=== PATIENT | female | born 1955 | race Caucasian/White ===

== ENCOUNTER 2016-08-19 18:13 | Inpatient (IN) | payer SELFPAY ==
[~2016-08-19] VITALS: Ht 157.5 cm; Wt 72.2 kg
[~2016-08-19 18:13] MED LIST: ADVAI500I INH; AEROI INH; ALBU0.086 INH; ALBU17I INH; DOXY100T OR; DUONSOL2 NEB; VENTAER INH
[2016-08-19] MEDS ORDERED: ONDANSETRON HCL 4 MG/2 ML VIAL IV PUSH ONE (18:45)
[2016-08-19] MEDS ORDERED: MORPHINE SULFATE 4 MG/ML INJ IV PUSH ONE (18:45)
[2016-08-19] MEDS ORDERED: SODIUM CHLORIDE 0.9% FLUSH 5 ML FLUSH IVF PRN (18:45)
--- NOTE | 2016-08-19 18:55 | PD ---
HPI Chief Complaint: fall/right shoulder pain Time Seen by Provider: 18:52 Travel History International Travel<30 days: No Contact w/Intl Traveler<30days: No Traveled to known affect area: No History of Present Illness HPI 61-year-old female who fell at home was brought to the emergency department via EMS with right shoulder pain. Patient states she slipped in her kitchen and fell onto the floor. Patient has pain in the right upper extremity and is unable to move the shoulder. She states normal distal sensation and can make a fist. Patient is splinted in a sling. She denies hitting her head or loss of consciousness. She denies headache or neck pain. She denies injury to any other part of the body. Patient has a history of COPD but she does not use anything for it currently. Percocet makes her violently ill. She states she's had morphine in the past with Zofran without difficulty. Patient's last meal was at noon. PFSH Past Medical History Asthma: Yes Blood Disorders: No Cancer: No Cardiovascular Problems: No Chemotherapy: No COPD: Yes Endocrine: No Genitourinary: No Immune Disorder: No Neurologic: No Psychiatric: No Reproductive: No Respiratory: Yes Radiation Therapy: No Menopausal: Yes Past Surgical History Abdominal Surgery: No Cardiac Surgery: No Ear Surgery: No Endocrine Surgery: No Eye Surgery: No Genitourinary Surgery: No Gynecologic Surgery: No Neurologic Surgery: No Oral Surgery: Yes (TONSILS) Thoracic Surgery: No Tonsillectomy: Yes Other Surgery: Yes Social History Alcohol Use: Yes (2-3 BEERS A DAY) Tobacco Use: Yes (1/2 PPD) Substance Use: No Allergies-Medications (Allergen,Severity, Reaction): Coded Allergies: Percocet (Verified Allergy, Severe, headache, 08/19/16) Uncoded Allergies: [facility] (Allergy, Unknown, 04/21/09) Reported Meds & Prescriptions Reported Meds & Active Scripts Active Doxycycline Hyclate 100 Mg Tab 100 Mg OR BID Advair Diskus 500/50 (Salmeterol Xinafoate/Fluticasone) 500 Mcg/50 Mcg Inhp 14 Inhalation INH DAILY Proventil Ud 0.083% (2.5 Mg/3 Ml) (Albuterol Sulfate) 2.5 Mg/3 Ml Inha 2.5 Mg INH Q4 30 Days Aerochamber (Device) Device 0 INH DIRECTED Ventolin Hfa (Albuterol Sulfate) 18 Gm Aero 2 Puff INH Q4 * SHAKE WELL BEFORE USE * Resp: Albuterol 2.5 Mg/Ipratropium 0.5 Mg (Albuterol/Ipratropium) 1 Amp Nebu 1 Amp NEB QID Proventil Ud 0.083% (2.5 Mg/3 Ml) (Albuterol Sulfate) 2.5 Mg/3 Ml Inha 2.5 Mg INH QIDPRN Reported Proventil Mdi (Albuterol Sulfate) 17 Gm Aero 2 Puff INH Q3-4HPRN Physical Exam Narrative GENERAL: Patient appears in moderate distress. SKIN: Warm and dry. Normal color. Normal turgor. No abrasions or open wounds. HEAD: Atraumatic. Normocephalic. Tender. EYES: Pupils equal and round. No scleral icterus. No injection or drainage. ENT: No nasal bleeding or discharge. Mucous membranes pink and moist. No dental injury. Pharynx is clear. Airway is patent. NECK: Trachea midline. No bony tenderness. No step-off. Range of motion is full. CARDIOVASCULAR: Regular rate and rhythm. RESPIRATORY: No accessory muscle use. Clear to auscultation. Breath sounds equal bilaterally. GASTROINTESTINAL: Abdomen soft, non-tender, nondistended. Hepatic and splenic margins not palpable. MUSCULOSKELETAL: Extremities without clubbing, cyanosis, or edema. No obvious deformities. Right shoulder has severe tenderness with palpation or any movement. Patient is guarding the right upper arm. No other musculoskeletal findings are noted. NEUROLOGICAL: Awake and alert. No obvious cranial nerve deficits. Motor grossly within normal limits. Five out of 5 muscle strength in the arms and legs. Normal speech. PSYCHIATRIC: Appropriate mood and affect; insight and judgment normal. Data Data Last Documented VS Vital Signs Date Time Temp Pulse Resp B/P Pulse Ox O2 Delivery O2 Flow Rate FiO2 08/19/16 19:10 98.1 76 16 142/89 97 Orders Ondansetron Inj (Zofran Inj) (08/19/16 18:45) Morphine Inj (Morphine Inj) (08/19/16 18:45) Shoulder, Limited(2vws) (08/19/16 18:44) Ice/Cold Pack (08/19/16 18:44) Complete Blood Count With Diff (08/19/16 18:44) Comprehensive Metabolic Panel (08/19/16 18:44) Prothrombin Time / Inr (Pt) (08/19/16 18:44) Act Partial Throm Time (Ptt) (08/19/16 18:44) Iv Access Insert/Monitor (08/19/16 18:44) NPO (08/19/16 18:44) Sodium Chloride 0.9% Flush (Ns Flush) (08/19/16 18:45) Electrocardiogram (08/19/16 18:44) Chest, Single Ap (08/19/16 18:44) Ct Shoulder W Iv Contrast (08/19/16 ) Labs Laboratory Tests Test 08/19/16 19:00 White Blood Count 13.8 TH/MM3 Red Blood Count 4.32 MIL/MM3 Hemoglobin 12.7 GM/DL Hematocrit 37.7 % Mean Corpuscular Volume 87.3 FL Mean Corpuscular Hemoglobin 29.3 PG Mean Corpuscular Hemoglobin 33.5 % Concent Red Cell Distribution Width 13.3 % Platelet Count 277 TH/MM3 Mean Platelet Volume 8.3 FL Neutrophils (%) (Auto) 74.4 % Lymphocytes (%) (Auto) 19.9 % Monocytes (%) (Auto) 4.2 % Eosinophils (%) (Auto) 1.1 % Basophils (%) (Auto) 0.4 % Neutrophils # (Auto) 10.3 TH/MM3 Lymphocytes # (Auto) 2.7 TH/MM3 Monocytes # (Auto) 0.6 TH/MM3 Eosinophils # (Auto) 0.2 TH/MM3 Basophils # (Auto) 0.1 TH/MM3 CBC Comment DIFF FINAL Differential Comment Prothrombin Time 10.7 SEC Prothromb Time International 1.0 RATIO Ratio Activated Partial 22.9 SEC Thromboplast Time Sodium Level 140 MEQ/L Potassium Level 3.7 MEQ/L Chloride Level 106 MEQ/L Carbon Dioxide Level 26.8 MEQ/L Anion Gap 7 MEQ/L Blood Urea Nitrogen 16 MG/DL Creatinine 0.90 MG/DL Estimat Glomerular Filtration 64 ML/MIN Rate Random Glucose 111 MG/DL Calcium Level 8.5 MG/DL Total Bilirubin 0.2 MG/DL Aspartate Amino Transf 9 U/L (AST/SGOT) Alanine Aminotransferase 25 U/L (ALT/SGPT) Alkaline Phosphatase 74 U/L Total Protein 6.7 GM/DL Albumin 3.6 GM/DL MDM Medical Decision Making Medical Screen Exam Complete: Yes Emergency Medical Condition: Yes Differential Diagnosis Fall. Right humerus fracture. Right shoulder fracture. Narrative Course Patient is medically stable at time of exam. X-ray of the right shoulder is obtained. The access is obtained patient is given 4 mg Zofran IV as well as 4 mg morphine IV. Patient is kept nothing by mouth. Chest x-ray is obtained as well as EKG. Right shoulder x-ray shows comminuted fracture of the proximal humerus with humeral neck fracture with angulation. 1944 hrs. call was placed to Dr. Jimenez the orthopedic on-call. 1949 hrs. call was returned by Dr. Jimenez and the patient was discussed. He requested a CT scan of the right shoulder and admission by the hospitalist for surgery in the morning. CT of the right shoulder with IV contrast is requested. 1954 hrs. call was placed to the hospitalist for admission. Patient is to be nothing by mouth after midnight. 2009 hrs. patient was discussed with Dr. Acevedo, who will admit the patient. Diagnosis Primary Impression: Shoulder fracture, right Qualified Code: S42.91XA - Shoulder fracture, right, closed, initial encounter Admitting Information Admitting Physician Requests: Admit Condition: Stable Pantera Locke Aug 19, 2016 18:55
[2016-08-19 19:10] VITALS: BP 142/89; PULSE 76; RESP 16; TEMP 98.1; O2SAT 97
[2016-08-19 19:18] LABS: AUTOMATED NEUTROPHIL # 10.3 TH/MM3 (1.8-7.7); BASOPHIL # 0.1 TH/MM3 (0-0.2); BASOPHIL % 0.4 % (0.0-2.0); EOSINOPHIL # 0.2 TH/MM3 (0-0.4); EOSINOPHIL % 1.1 % (0.0-4.0); HEMATOCRIT 37.7 % (35.0-46.0); HEMO FLAGS DIFF FINAL; LYMPH % 19.9 % (9.0-44.0); LYMPHOCYTE # 2.7 TH/MM3 (1.0-4.8); MEAN CELL VOLUME 87.3 FL (80.0-100.0); MEAN CORPUSCULAR HEMOGLOBIN 29.3 PG (27.0-34.0); MEAN CORPUSCULAR HGB CONC 33.5 % (32.0-36.0); MONO % 4.2 % (0.0-8.0); NEUT % 74.4 % (16.0-70.0); PLATELET COUNT 277 TH/MM3 (150-450); RED BLOOD COUNT 4.32 MIL/MM3 (4.00-5.30); RED CELL DISTRIBUTION WIDTH 13.3 % (11.6-17.2); WHITE BLOOD COUNT 13.8 TH/MM3 (4.0-11.0)
[2016-08-19 19:37] LABS: APTT (PATIENT) 22.9 SEC (24.3-30.1); PROTHROMBIN TIME - PATIENT 10.7 SEC (9.8-11.6)
--- NOTE | 2016-08-19 19:40 | RADRPT ---
EXAM DATE/TIME: 08/19/2016 19:13 [facility] COMPARISON: No previous studies available for comparison. INDICATIONS : Right shoulder pain due to fall. MEDICAL HISTORY : None. SURGICAL HISTORY : None. ENCOUNTER: Initial ACUITY: 1 day PAIN SCORE: 8/10 LOCATION: Right Shoulder. FINDINGS: There is a comminuted greater tuberosity and anatomic neck fracture of the right humerus. The greater tuberosity fracture fragments have a few millimeters of superior displacement. The humeral head is d isplaced and angulated posteriorly with respect to the neck. CONCLUSION: Comminuted and displaced greater tuberosity and anatomic neck fracture of the right humerus. Melchor Cabrera MD on August 19, 2016 at 19:38 Board Certified Radiologist. This report was verified electronically.
--- NOTE | 2016-08-19 19:41 | RADRPT ---
EXAM DATE/TIME: 08/19/2016 19:18 [facility] COMPARISON: No previous studies available for comparison. INDICATIONS : Right chest pain due to fall. MEDICAL HISTORY : None. SURGICAL HISTORY : None. ENCOUNTER: Initial ACUITY: 1 day PAIN SCORE: 8/10 LOCATION: Bilateral chest FINDINGS: A single view of the chest demonstrates the lungs to be symmetrically aerated without evidence of mas s, infiltrate or effusion. The cardiomediastinal contours are unremarkable. Osseous structures are intact. CONCLUSION: No evidence of acute cardiopulmonary disease. Melchor Cabrera MD on August 19, 2016 at 19:39 Board Certified Radiologist. This report was verified electronically.
[2016-08-19 19:48] LABS: ALT (GPT) 25 U/L (10-53); ANION GAP 7 MEQ/L (5-15); AST (GOT) 9 U/L (15-37); BICARBONATE 26.8 MEQ/L (21.0-32.0); BLOOD UREA NITROGEN 16 MG/DL (7-18); CHLORIDE 106 MEQ/L (98-107); GLOMERULAR FILTRATION RATE 64 ML/MIN (>89); POTASSIUM 3.7 MEQ/L (3.5-5.1); SODIUM (NA) 140 MEQ/L (136-145)
[2016-08-19 19:50] LABS: ALKALINE PHOSPHATASE 74 U/L (45-117); TOTAL BILIRUBIN ADULT 0.2 MG/DL (0.2-1.0)
[2016-08-19] MEDS ORDERED: BISACODYL 10 MG SUPP PR PRN (20:15)
[2016-08-19] MEDS ORDERED: RESP: ALBUTEROL 2.5 MG/IPRATROPIUM 0.5 MG NEB (PRN) NEB (20:15)
[2016-08-19] MEDS ORDERED: SODIUM CHLORIDE 0.9% FLUSH 5 ML FLUSH FLUSH PRN (20:15)
[2016-08-19] MEDS ORDERED: MORPHINE SULFATE 4 MG/ML INJ IV PRN (20:15)
--- NOTE | 2016-08-19 20:35 | HHI.HP ---
[facility] Primary [facility]ician No Primary Care Physician Admission Diagnosis Right humerus fracture after fall Diagnoses: (1) Fall Diagnosis: Principal (2) Shoulder fracture, right Diagnosis: Principal (3) Leukocytosis Diagnosis: Principal (4) COPD (chronic obstructive pulmonary disease) Diagnosis: Principal (5) Tobacco abuse Diagnosis: Principal Travel History International Travel<30 Days: No Contact w/Intl Traveler <30 Da: No Traveled to Known Affected Are: No History of Present Illness This is a 61-year-old female with a PMH of COPD and Tobacco Abuse was brought to the ER by EMS secondary to complaints of right shoulder pain after fall. Per patient, she was in her kitchen when she had sudden slip and fall, fell onto her right arm and noted immediate pain. No LOC or head trauma. On arrival , BP 142/89, HR 76, O2 sat 97% on RA, Afebrile. WBC 13.8. Chemistry unremarkable except for GFR 64. Shoulder X-ray with comminuted and displaced greater tuberosity and anatomic neck fracture of the right humerus. CXR with no acute findings. Dr. Jimenez consulted by ER physician, plan is for surgical intervention in a.m. Review of Systems Except as stated in HPI: all other systems reviewed are Neg ROS: 14 point review of systems otherwise negative. Past Family Social History Past Medical History PMH: COPD and Tobacco Abuse Past Surgical History PAST SURGICAL HISTORY: Tonsillectomy Allergies: Coded Allergies: Percocet (Verified Allergy, Severe, headache, 08/19/16) Uncoded Allergies: [facility] (Allergy, Unknown, 04/21/09) Family History PAST FAMILY HISTORY: Reviewed. No h/o DM or CAD Social History PAST SOCIAL HISTORY: Drinks 2 beers per day. Smokes 1/2ppd. Negative for drugs. Physical Exam Vital Signs Vital Signs Date Time Temp Pulse Resp B/P Pulse Ox O2 Delivery O2 Flow Rate FiO2 08/19/16 19:10 98.1 76 16 142/89 97 Physical Exam PE: GENERAL: Middle-aged female in no acute distress. HEENT: PERRLA, EOMI. No scleral icterus or conjunctival pallor. No lid lag or facial droop. CARDIOVASCULAR: Regular rate and rhythm. No obvious murmurs to auscultation. No chest tenderness to palpation. RESPIRATORY: No obvious rhonchi or wheezing. Clear to auscultation. Breath sounds equal bilaterally. GASTROINTESTINAL: Abdomen soft, non-tender, nondistended. BS normal. MUSCULOSKELETAL: Extremities without clubbing, cyanosis, or edema. No obvious deformities. RUE splint NEUROLOGICAL: Awake, alert and oriented x4. No focal neurologic deficits. Moving both upper and lower extremities spontaneously. Laboratory Laboratory Tests Test 08/19/16 19:00 White Blood Count 13.8 Red Blood Count 4.32 Hemoglobin 12.7 Hematocrit 37.7 Mean Corpuscular Volume 87.3 Mean Corpuscular Hemoglobin 29.3 Mean Corpuscular Hemoglobin 33.5 Concent Red Cell Distribution Width 13.3 Platelet Count 277 Mean Platelet Volume 8.3 Neutrophils (%) (Auto) 74.4 Lymphocytes (%) (Auto) 19.9 Monocytes (%) (Auto) 4.2 Eosinophils (%) (Auto) 1.1 Basophils (%) (Auto) 0.4 Neutrophils # (Auto) 10.3 Lymphocytes # (Auto) 2.7 Monocytes # (Auto) 0.6 Eosinophils # (Auto) 0.2 Basophils # (Auto) 0.1 CBC Comment DIFF FINAL Differential Comment Prothrombin Time 10.7 Prothromb Time International 1.0 Ratio Activated Partial 22.9 Thromboplast Time Sodium Level 140 Potassium Level 3.7 Chloride Level 106 Carbon Dioxide Level 26.8 Anion Gap 7 Blood Urea Nitrogen 16 Creatinine 0.90 Estimat Glomerular Filtration 64 Rate Random Glucose 111 Calcium Level 8.5 Total Bilirubin 0.2 Aspartate Amino Transf 9 (AST/SGOT) Alanine Aminotransferase 25 (ALT/SGPT) Alkaline Phosphatase 74 Total Protein 6.7 Albumin 3.6 Result Diagram: 08/19/16189908/19/161899 Assessment and Plan Problem List: (1) Fall ICD Code: W19.XXXA Status: Acute (2) Shoulder fracture, right ICD Code: S42.91XA Status: Acute (3) Leukocytosis ICD Code: D72.829 Status: Acute (4) COPD (chronic obstructive pulmonary disease) ICD Code: J44.9 Status: Acute (5) Tobacco abuse ICD Code: Z72.0 Status: Acute Assessment and Plan A/P: 1. Fall: s/p mechanical slip and fall in kitchen, no LOC or head trauma reported. Denies dizziness, lightheadedness, chest pain or SOB. 2. Right Shoulder Fx: secondary to above. Shoulder X-ray w/ comminuted and displaced greater tuberosity and anatomic neck fracture right humerus, images reviewed by me. Dr. Jimenez consulted by ER physician, plan is for surgical intervention in a.m. NPO after midnight, IVF, analgesics/antiemetics as needed. 3. Leukocytosis: WBC 13.8, no signs of infection. CXR w/ no acute findings, images reviewed by me. Likely secondary to fall/injury. Will repeat labs in am. 4. COPD: Controlled. Resume home MDI, DuoNeb prn. 5. DVT Prophylaxis: SCD/Teds. 6. Social work for d/c planning as needed. 7. Case discussed w/ ER physician at length. Physician Certification 2 Midnight Certification Type: Admission for Inpatient Services Order for Inpatient Services The services are ordered in accordance with Medicare regulations or non- Medicare payer requirements, as applicable. In the case of services not specified as inpatient-only, they are appropriately provided as inpatient services in accordance with the 2-midnight benchmark. Estimated LOS (days): 2 days is the estimated time the patient will need to remain in the hospital, assuming treatment plan goals are met and no additional complications. Post-Hospital Plan: Not yet determined Problem Qualifiers (1) Shoulder fracture, right: Qualified Code: S42.91XA - Shoulder fracture, right, closed, initial encounter Katja Raymond MD Aug 19, 2016 20:35
[2016-08-19] MEDS: BUDESONIDE-FORMOTEROL 160/4.5 MCG INHALER INH SCH (21:00)
[2016-08-19 21:32] VITALS: BP 140/70; PULSE 80; RESP 20; TEMP 98.2; O2SAT 98
--- NOTE | 2016-08-19 22:35 | RADRPT ---
EXAM DATE/TIME: 08/19/2016 21:35 [facility] COMPARISON: SHOULDER RIGHT LTD (2VWS), August 19, 2016, 19:13. INDICATIONS : Right shoulder fracture. RADIATION DOSE: 23.67 CTDIvol (mGy) MEDICAL HISTORY : Chronic obstructive pulmonary disease. SURGICAL HISTORY : Tonsillectomy. ENCOUNTER: Initial ACUITY: 1 day PAIN SCALE: 6/10 LOCATION: Right shoulder TECHNIQUE: Volumetric scanning of the shoulder was performed. Using automated exposure control and adjustment o f the mA and/or kV according to patient size, radiation dose was kept as low as reasonably achievable to obtain optimal diagnostic quality images. FINDINGS: Extremely comminuted and impacted greater tuberosity and surgical/anatomic neck fracture seen of the right humerus. There is posterior angulation deformity of the head with respect to the neck. The grea ter tuberosity fracture fragments have up to 5 mm of posterior and superior displacement with respect to the rest of the head. There is localized nondisplaced fracturing through the lesser tuberosity. T he majority of the humeral head articular surface is intact. No subluxation. Glenoid and the rest of the scapula intact. CONCLUSION: Comminuted, impacted and primarily posteriorly angulated neck and greater tuberosity fracture of the right humerus. Melchor Cabrera MD on August 19, 2016 at 22:31 Board Certified Radiologist. This report was verified electronically.
[2016-08-19] MEDS: SODIUM CHLOR 0.9% 1000 ML INJ 1,000 ML IV SCH (22:39)
[2016-08-19] MEDS: SODIUM CHLORIDE 0.9% FLUSH 5 ML FLUSH FLUSH SCH (22:39)
[2016-08-19 22:40] VITALS: BP 155/69; PULSE 92; RESP 22; TEMP 97.5; O2SAT 97
[2016-08-19] MEDS: MORPHINE SULFATE 4 MG/ML INJ IV PRN (22:40)
[2016-08-20] MEDS: MORPHINE SULFATE 4 MG/ML INJ IV PRN ×4 (01:38→20:48)
[2016-08-20] MEDS: ONDANSETRON HCL 4 MG/2 ML VIAL IVP PRN ×3 (01:38→20:48)
[2016-08-20 04:00] VITALS: BP 122/60; PULSE 81; RESP 20; TEMP 96.1; O2SAT 96
[2016-08-20 05:37] LABS: AUTOMATED NEUTROPHIL # 9.1 TH/MM3 (1.8-7.7); BASOPHIL # 0.1 TH/MM3 (0-0.2); BASOPHIL % 0.5 % (0.0-2.0); EOSINOPHIL # 0.1 TH/MM3 (0-0.4); EOSINOPHIL % 0.7 % (0.0-4.0); HEMATOCRIT 34.7 % (35.0-46.0); HEMO FLAGS DIFF FINAL; LYMPH % 22.3 % (9.0-44.0); LYMPHOCYTE # 2.9 TH/MM3 (1.0-4.8); MEAN CELL VOLUME 87.9 FL (80.0-100.0); MONO % 6.1 % (0.0-8.0); NEUT % 70.4 % (16.0-70.0); PLATELET COUNT 236 TH/MM3 (150-450); RED BLOOD COUNT 3.94 MIL/MM3 (4.00-5.30); RED CELL DISTRIBUTION WIDTH 13.4 % (11.6-17.2)
[2016-08-20 05:54] LABS: ALT (GPT) 23 U/L (10-53); ANION GAP 9 MEQ/L (5-15); AST (GOT) 7 U/L (15-37); BICARBONATE 23.8 MEQ/L (21.0-32.0); BLOOD UREA NITROGEN 12 MG/DL (7-18); CHLORIDE 106 MEQ/L (98-107); GLOMERULAR FILTRATION RATE 99 ML/MIN (>89); POTASSIUM 4.1 MEQ/L (3.5-5.1); SODIUM (NA) 139 MEQ/L (136-145)
[2016-08-20 05:56] LABS: ALKALINE PHOSPHATASE 67 U/L (45-117); TOTAL BILIRUBIN ADULT 0.4 MG/DL (0.2-1.0)
[2016-08-20] MEDS: SODIUM CHLOR 0.9% 1000 ML INJ 1,000 ML IV SCH ×2 (07:00→16:46)
[2016-08-20 08:00] VITALS: BP 119/74; PULSE 77; RESP 18; TEMP 96.3; O2SAT 96
[2016-08-20] MEDS: SODIUM CHLORIDE 0.9% FLUSH 5 ML FLUSH FLUSH SCH ×2 (08:11→20:48)
[2016-08-20] MEDS: BUDESONIDE-FORMOTEROL 160/4.5 MCG INHALER INH SCH ×2 (08:11→20:49)
--- NOTE | 2016-08-20 10:24 | PD.ORT.PN ---
Subjective Subjective Remarks s/p fall at home right shoulder pain Objective Vitals Vital Signs Date Time Temp Pulse Resp B/P Pulse Ox O2 Delivery O2 Flow Rate FiO2 08/20/16 08:00 96.3 77 18 119/74 96 08/20/16 04:00 96.1 81 20 122/60 96 08/19/16 23:43 97 Room Air 08/19/16 22:40 97.5 92 22 155/69 97 08/19/16 21:32 98.2 80 20 140/70 98 Room Air 08/19/16 19:10 98.1 76 16 142/89 97 I/O 08/19/16 08/19/16 08/19/16 08/20/16 08/20/16 08/20/16 07:00 15:00 23:00 07:00 15:00 23:00 Intake Total 1039 ml Balance 1039 ml Intake Oral 240 ml IV Total 799 ml # Voids 1 # Bowel Movements 0 Result Diagram: 08/20/16 0446 08/20/16 0446 Other Results Laboratory Tests Test 08/19/16 19:00 Prothrombin Time 10.7 SEC (9.8-11.6) Prothromb Time International 1.0 RATIO Ratio Imaging Last 24 hours Impressions Shoulder X-Ray 08/19/161843 Signed Impressions: Service Date/Time: Friday, August 19, 2016 19:13 - CONCLUSION: Comminuted and displaced greater tuberosity and anatomic neck fracture of the right humerus. Melchor Cabrera MD Chest X-Ray 08/19/161843 Signed Impressions: Service Date/Time: Friday, August 19, 2016 19:18 - CONCLUSION: No evidence of acute cardiopulmonary disease. Melchor Cabrera MD Objective Remarks RUE: + sling. NVI. bruising in shoulder Assessment & Plan Assessment and Plan 1) Right Proximal Humerus Fx -consents -surgery today Elia Flaherty Aug 20, 2016 10:24
[2016-08-20] MEDS ORDERED: HYDR-3288 PO (10:25)
[2016-08-20] MEDS ORDERED: ERGO1CAP30 PO (10:25)
[2016-08-20] MEDS ORDERED: CALCTAB19 PO (10:25)
[2016-08-20] MEDS ORDERED: VITA2000 PO (10:25)
[2016-08-20] MEDS ORDERED: GENTAMICIN SULFATE 80 MG/2 ML VIAL ONE (10:30)
[2016-08-20] MEDS ORDERED: VANCOMYCIN HCL 1000 MG VIAL ONE (10:30)
[2016-08-20] MEDS ORDERED: ceFAZolin INJ 1,000 MG VIAL ONE (10:30)
[2016-08-20] MEDS ORDERED: ACETAMINOPHEN 1000 MG/100 ML VIAL IV ONE (10:40)
--- NOTE | 2016-08-20 10:43 | PD.OP ---
cc: Alvaro Franco MD Operative Report Date of Surgery: Aug 20, 2016 Preoperative Diagnosis: displaced right proximal humerus fracture Postoperative Diagnosis: Same Procedure: Open reduction internal fixation right proximal humerus Surgeon: Alvaro Franco Saxophone Teacher(s): Elia Flaherty PA-C The surgical procedure was assisted by my physician early childhood assistant. My P.A. presence was necessary throughout this case for the manipulation and positioning of the surgical extremity. My P.A. was assisting me throughout the duration of this procedure. The skill set of a physician early childhood assistant was medically necessary to complete this procedure. During the surgical case the surgical dressing maker was working at the back table and the physician early childhood assistant was directly assisting me. Operation and Findings: Patient was seen and evaluated preoperatively. Patient was found to have a displaced right proximal humerus fracture. The risks and benefits of surgical and nonsurgical options were discussed in detail and informed consent was obtained for surgery. Patient was brought to the operating room and placed on or table. IV sedation and GETA were administered by anesthesiologist. Antibiotics were given prior to incision. Operative arm and shoulder were prepped with alcohol followed by Hibiclens and draped usual sterile fashion. Timeout procedure was performed. Procedure began with a 5 inch incision over the anterior shoulder. Cephalic vein was identified. A deltopectoral approach was utilized. The fracture was now visualized. Soft tissue was retracted. A #5 FiberWire suture was placed into the rotator rotator cuff and greater tuberosity. A second #5 FiberWire suture was placed into the lesser tuberosity and rotator cuff Attention was now turned to reduction. Gentle traction was applied. The humeral shaft was reduced to the humeral head. Fracture was manipulated to achieve excellent reduction. Multiplanar fluoroscopy confirmed well aligned fracture. Multiple K wires were used to hold provisional fixation. A Synthes proximal humerus plate was selected. Plate was provisionally held in place K wires. 3.5 cortical screws were used to compress plate to bone. Fluoroscopy confirmed appropriate plate placement and fracture reduction. Multiple locking screws were now placed in the humeral head. Screws were predrilled and premeasured for appropriate length. Care was taken not to penetrate the articular surface. Additional screws were placed in the humeral shaft. The FiberWire suture was passed through the holes of the plate and sutured to the plate for additional stability. Final fluoroscopy revealed well aligned fracture with well-placed hardware. Wound was thoroughly irrigated. Fascia was closed with #1 Vicryl, subcutaneous tissues closed with 3-0 Vicryl, and skin was closed with concha. Sterile dressings were applied. Patient was placed into a sling. Patient was awakened and transferred to recovery in stable condition. Needle and sponge counts were correct. Alvaro Franco MD Aug 20, 2016 10:43
[2016-08-20] MEDS ORDERED: MORPHINE SULFATE 4 MG/ML INJ IV PUSH PRN (10:45)
[2016-08-20] MEDS ORDERED: SODIUM CHLORIDE 0.9% FLUSH 5 ML FLUSH IVF PRN (10:45)
[2016-08-20] MEDS ORDERED: diphenhydrAMINE HCL 25 MG CAP PO PRN (10:45)
--- NOTE | 2016-08-20 11:46 | HHI.DCPOC ---
Discharge Care Plan Goals to Promote Your Health * To prevent worsening of your condition and complications * To maintain your health at the optimal level Directions to Meet Your Goals Take your medications as prescribed Follow your dietary instruction Follow activity as directed Keep your appointments as scheduled Take your immunizations and boosters as scheduled If your symptoms worsen call your PCP, if no PCP go to Urgent Care Center or Emergency Room Smoking is Dangerous to Your Health. Avoid second hand smoke Call the 24-hour hour crisis hotline for domestic abuse at Nette Estes MD Aug 20, 2016 11:46
[2016-08-20] MEDS ORDERED: PHENYLEPH/NS 1000 MCG/10 ML SYR IV ONE (11:59)
[2016-08-20] MEDS ORDERED: NEOSTIGMINE 3 MG/3 ML SYR IV ONE (11:59)
[2016-08-20] MEDS ORDERED: ONDANSETRON HCL 4 MG/2 ML VIAL IV PUSH ONE (11:59)
[2016-08-20] MEDS ORDERED: PROPOFOL 200 MG/20 ML AMP IV ONE (11:59)
[2016-08-20] MEDS ORDERED: ePHEDrine/NS 25 MG/5 ML SYR IV ONE (12:03)
--- NOTE | 2016-08-20 12:23 | RADRPT ---
EXAM DATE/TIME: 08/20/2016 11:05 [facility] COMPARISON: SHOULDER RIGHT LTD (2VWS), August 19, 2016, 19:13. INDICATIONS : Right Shoulder ORIF. MEDICAL HISTORY : Unobtainable. SURGICAL HISTORY : Unobtainable. ENCOUNTER: Initial ACUITY: 1 day PAIN SCORE: Non-responsive. LOCATION: Right Shoulder. FINDINGS: Multiple view examination of the right shoulder demonstrates a surgical plate along the lateral proxi mal humerus secured by multiple screws. The fracture is successfully reduced. The glenohumeral joint is normally aligned. CONCLUSION: Successful ORIF. Melchor Bragg MD on August 20, 2016 at 12:20 Board Certified Radiologist. This report was verified electronically.
[2016-08-20] MEDS ORDERED: DO NOT ADM ANY ANTICOAGULANT DRUGS XX PRN (12:29)
[2016-08-20] MEDS ORDERED: MIDAZOLAM HCL 2 MG/2 ML VIAL ONE (12:38)
[2016-08-20] MEDS ORDERED: fentaNYL CITRATE 250 MCG/5 ML AMP ONE (12:39)
[2016-08-20] MEDS ORDERED: *morphine SULFATE 8 MG/ML PERIprocedure ONLY ONE ×2 (12:39→12:57)
[2016-08-20] MEDS ORDERED: FAMOTIDINE 20 MG/2 ML VIAL ONE (12:40)
[2016-08-20] MEDS ORDERED: *PROMETHAZINE 25 MG/ML VIAL PERIprocedural use ONLY ONE (12:56)
[2016-08-20] MEDS: CALCIUM/VITAMIN D 250 MG/125 U TAB PO SCH ×2 (13:00→17:53)
--- NOTE | 2016-08-20 13:38 | MB ---
cc: SELMA TUCKER DATE OF CONSULTATION: 08/20/2016. REASON FOR CONSULTATION: Right proximal humerus fracture. HISTORY OF PRESENT ILLNESS: Sydni is a 61-year-old female who has a history of COPD secondary to tobacco abuse. She describes a mechanical fall. She slipped and fell in her kitchen. She landed on her right shoulder and arm. She had immediate right arm pain. She presented to the emergency room where x-rays revealed a displaced right proximal humerus fracture. She is currently awake and alert. Her only complaint is her right shoulder. Pain is worse with movement and is improved with rest. She denies any dizziness, syncope or loss of consciousness. PAST MEDICAL HISTORY / ILLNESSES: COPD. PAST SURGICAL HISTORY: Tonsillectomy. ALLERGIES: Percocet. FAMILY HISTORY: Family history is noncontributory. She denies any history of coronary artery disease, diabetes or problems anesthesia. SOCIAL HISTORY: The patient drinks about two beers a day. She smokes half-a-pack a day. She denies drug use. REVIEW OF SYSTEMS: The patient denies headache, visual changes, neck pain, chest pain, shortness of breath, abdominal pain, nausea or recent weight loss or numbness or tingling of the extremities. She complains of right shoulder pain. PHYSICAL EXAMINATION: GENERAL: The patient is a well-developed, well-nourished 61-year-old female in no acute distress. She is awake and alert. She is alert and oriented x3. VITAL SIGNS: Temperature 96.3, pulse 77, respirations 18, blood pressure 119/74, O2 sat 96% on room air. HEAD, EYES, EARS, NOSE, THROAT: The patient is normocephalic. Pupils are equal. NECK: Soft, nontender. Trachea is midline. ABDOMEN: The abdomen is soft, nontender and nondistended. EXTREMITIES: Examination of the right arm reveals mild swelling and bruising around the shoulder. She has no restriction of her elbow or wrist or hand. She has intact sensation in all fingers. She has good capillary refill in all fingers. Skin is intact. Radial pulses palpable. Examination of left arm reveals no pain with shoulder, elbow or wrist motion. She has intact sensation to all fingers. She has good capillary refill in all fingers. Skin is intact. Examination of bilateral lower extremities reveals no significant pain with hip, knee or ankle motion. Skin is intact. Dorsalis pedis pulses are palpable. Sensation is intact in both feet. IMAGING STUDIES: X-rays and CT of the right shoulder were reviewed. X-rays reveal a mildly displaced four-part proximal humerus fracture. The glenohumeral joint is reduced. IMPRESSION: 1. COPD 2. Tobacco dependence. 3. Displaced right proximal humerus fracture. PLAN: The treatment options were discussed with the patient. I discussed nonsurgical and surgical options. The risks of surgery include bleeding, infection, injury to arteries, nerves and blood vessels, nonunion, malunion, avascular necrosis, need for hip replacement, shoulder arthritis as well as medical complications including blood clot, stroke, heart attack and were discussed. All questions were answered. I will plan on surgery today. A mid-level provider in my office (nurse practitioner or physician licensed physical therapist assistant) may see this patient on follow-up visits and continue to implement the objectives of this plan including: Starting or adjusting medications, injections , cast application, orthotics, brace application, physical therapy, radiological studies (including x-ray, MRI, CT, ultrasound, bone scan), vascular studies, neurologic studies, specialist consultation, and proceeding with surgical management, as appropriate. MD CHANDLER Sellers/JERRY /10:40 AM /1:28 PM MTDTamara
[2016-08-20] MEDS: ceFAZolin 2 GM PREMIX 50 ML IV SCH ×2 (13:59→22:58)
--- NOTE | 2016-08-20 14:34 | HHI.PR ---
Subjective Remarks Patient seen in PACU. Says she feels nauseated after she received morphine. Did not vomit. Pain is controlled by meds. No n/v/d/c. Feels very tired and falls asleep easily. Objective Vitals Vital Signs Date Time Temp Pulse Resp B/P Pulse Ox O2 Delivery O2 Flow Rate FiO2 08/20/16 14:00 97.7 70 14 123/79 94 Nasal Cannula 2 08/20/16 13:45 75 13 122/60 95 Nasal Cannula 2 08/20/16 13:30 62 13 131/75 94 Nasal Cannula 3 08/20/16 13:15 65 13 118/69 97 Nasal Cannula 3 08/20/16 13:00 65 14 127/77 95 Nasal Cannula 3 08/20/16 12:45 77 14 124/66 94 Nasal Cannula 3 08/20/16 12:34 98.0 91 14 143/72 94 Nasal Cannula 3 08/20/16 08:00 Room Air 08/20/16 08:00 96.3 77 18 119/74 96 08/20/16 04:00 96.1 81 20 122/60 96 08/19/16 23:43 97 Room Air 08/19/16 22:40 97.5 92 22 155/69 97 08/19/16 21:32 98.2 80 20 140/70 98 Room Air 08/19/16 19:10 98.1 76 16 142/89 97 I/O 08/19/16 08/19/16 08/19/16 08/20/16 08/20/16 08/20/16 07:00 15:00 23:00 07:00 15:00 23:00 Intake Total 1039 ml 1400 ml Output Total 100 ml Balance 1039 ml 1300 ml Intake Oral 240 ml IV Total 799 ml 500 ml Other 900 ml Output Estimated Blood Loss 100 ml # Voids 1 # Bowel Movements 0 Result Diagram: 08/20/16 0446 08/20/166 Imaging Last Impressions Shoulder X-Ray 08/19/161843 Signed Impressions: Service Date/Time: Friday, August 19, 2016 19:13 - CONCLUSION: Comminuted and displaced greater tuberosity and anatomic neck fracture of the right humerus. Melchor Cabrera MD Chest X-Ray 08/19/161843 Signed Impressions: Service Date/Time: Friday, August 19, 2016 19:18 - CONCLUSION: No evidence of acute cardiopulmonary disease. Melchor Cabrera MD Upper Extremity CT 08/19/16 0000 Signed Impressions: Service Date/Time: Friday, August 19, 2016 21:35 - CONCLUSION: Comminuted, impacted and primarily posteriorly angulated neck and greater tuberosity fracture of the right humerus. Melchor Cabrera MD Objective Remarks GENERAL: Middle-aged female in no acute distress. HEENT: PERRLA, EOMI. No scleral icterus or conjunctival pallor. No lid lag or facial droop. CARDIOVASCULAR: Regular rate and rhythm. No obvious murmurs to auscultation. No chest tenderness to palpation. RESPIRATORY: No obvious rhonchi or wheezing. Clear to auscultation. Breath sounds equal bilaterally. GASTROINTESTINAL: Abdomen soft, non-tender, nondistended. BS normal. MUSCULOSKELETAL: Extremities without clubbing, cyanosis, or edema. No obvious deformities. RUE splint NEUROLOGICAL: Awake, alert and oriented x4. No focal neurologic deficits. Moving both upper and lower extremities spontaneously. Procedures S/P Open reduction internal fixation right proximal humerus by Dr Chang 08/20/16 A/P Problem List: (1) Fall ICD Code: W19.XXXA Status: Acute (2) Shoulder fracture, right ICD Code: S42.91XA Status: Acute (3) Leukocytosis ICD Code: D72.829 Status: Acute (4) COPD (chronic obstructive pulmonary disease) ICD Code: J44.9 Status: Acute (5) Tobacco abuse ICD Code: Z72.0 Status: Acute Assessment and Plan 1. Fall: s/p mechanical slip and fall in kitchen, no LOC or head trauma reported. Denies dizziness, lightheadedness, chest pain or SOB. 2. Right Shoulder Fx: secondary to above. Shoulder X-ray w/ comminuted and displaced greater tuberosity and anatomic neck fracture right humerus, images reviewed by me.Ortho consulted S/P Open reduction internal fixation right proximal humerus by Dr Chang by Dr Chang 08/20/16. IVF, analgesics/antiemetics as needed. Management per surgery 3. Leukocytosis: WBC 13.8, no signs of infection. CXR w/ no acute findings, images reviewed by me. Likely secondary to fall/injury. Trending down. DVT Prophylaxis: SCD/Teds. CM consult for d/c planning as needed. Discussed with the nurse, patient. Dc when improved and cleared by ortho Problem Qualifiers (1) Shoulder fracture, right: Qualified Code: S42.91XA - Shoulder fracture, right, closed, initial encounter Nette Estes MD Aug 20, 2016 14:34
[2016-08-20 16:00] VITALS: BP 94/64; PULSE 65; RESP 18; TEMP 96.1; O2SAT 95
[2016-08-20 20:36] VITALS: BP 117/63; PULSE 72; RESP 17; TEMP 98.5; O2SAT 98
[2016-08-20] MEDS ORDERED: SODIUM CHLORIDE 0.9% FLUSH 5 ML FLUSH IVF SCH (21:00)
[2016-08-20] MEDS: ACETAMINOPHEN/HYDROcodone 325 MG/10 MG TAB PO PRN (23:09)
[2016-08-21] VITALS: BP 115/59; PULSE 76; RESP 20; TEMP 97.5; O2SAT 95
[2016-08-21] MEDS: SODIUM CHLOR 0.9% 1000 ML INJ 1,000 ML IV SCH ×2 (03:00→12:45)
[2016-08-21 04:00] VITALS: BP 112/50; PULSE 70; RESP 18; TEMP 97.9; O2SAT 94
[2016-08-21 07:16] LABS: AUTOMATED NEUTROPHIL # 10.1 TH/MM3 (1.8-7.7); BASOPHIL # 0.1 TH/MM3 (0-0.2); BASOPHIL % 0.6 % (0.0-2.0); EOSINOPHIL % 0.1 % (0.0-4.0); HEMATOCRIT 29.7 % (35.0-46.0); HEMO FLAGS DIFF FINAL; LYMPH % 15.4 % (9.0-44.0); MEAN CELL VOLUME 87.4 FL (80.0-100.0); MEAN CORPUSCULAR HEMOGLOBIN 30.1 PG (27.0-34.0); MEAN CORPUSCULAR HGB CONC 34.5 % (32.0-36.0); MONO % 5.6 % (0.0-8.0); NEUT % 78.3 % (16.0-70.0); PLATELET COUNT 195 TH/MM3 (150-450); RED CELL DISTRIBUTION WIDTH 13.5 % (11.6-17.2); WHITE BLOOD COUNT 12.9 TH/MM3 (4.0-11.0)
[2016-08-21 07:38] LABS: POTASSIUM 4.3 MEQ/L (3.5-5.1)
[2016-08-21] MEDS: ceFAZolin 2 GM PREMIX 50 ML IV SCH (07:43)
[2016-08-21 08:00] VITALS: BP 110/50; PULSE 100; RESP 18; TEMP 96.1; O2SAT 92
[2016-08-21] MEDS: CALCIUM/VITAMIN D 250 MG/125 U TAB PO SCH ×2 (08:03→12:45)
[2016-08-21] MEDS: ACETAMINOPHEN/HYDROcodone 325 MG/10 MG TAB PO PRN (08:04)
[2016-08-21] MEDS: BUDESONIDE-FORMOTEROL 160/4.5 MCG INHALER INH SCH (08:04)
[2016-08-21] MEDS: SODIUM CHLORIDE 0.9% FLUSH 5 ML FLUSH FLUSH SCH (08:04)
--- NOTE | 2016-08-21 10:49 | HHI.PR ---
Subjective Remarks Feels much better. Ambulates. Says has help at home. No fever or chills. Pain is controlled by meds. Feels comfortable to go home. Objective Vitals Vital Signs Date Time Temp Pulse Resp B/P Pulse Ox O2 Delivery O2 Flow Rate FiO2 08/21/16 04:00 97.9 70 18 112/50 94 08/21/16 00:00 97.5 76 20 115/59 95 08/20/16 20:36 98.5 72 17 117/63 98 08/20/16 16:00 96.1 65 18 94/64 95 08/20/16 14:00 97.7 70 14 123/79 94 Nasal Cannula 2 08/20/16 13:45 75 13 122/60 95 Nasal Cannula 2 08/20/16 13:30 62 13 131/75 94 Nasal Cannula 3 08/20/16 13:15 65 13 118/69 97 Nasal Cannula 3 08/20/16 13:00 65 14 127/77 95 Nasal Cannula 3 08/20/16 12:45 77 14 124/66 94 Nasal Cannula 3 08/20/16 12:34 98.0 91 14 143/72 94 Nasal Cannula 3 I/O 08/20/16 08/20/16 08/20/16 08/21/16 08/21/16 08/21/16 07:00 15:00 23:00 07:00 15:00 23:00 Intake Total 1039 ml 1640 ml 480 ml 480 ml Output Total 100 ml Balance 1039 ml 1540 ml 480 ml 480 ml Intake Oral 240 ml 240 ml 480 ml 480 ml IV Total 799 ml 500 ml Other 900 ml Output Estimated Blood Loss 100 ml # Voids 1 2 3 2 # Bowel Movements 0 0 0 0 Result Diagram: 08/21/1630 08/21/16 0630 Imaging Last Impressions Shoulder X-Ray 08/20/16 0000 Signed Impressions: Service Date/Time: Saturday, August 20, 2016 11:05 - CONCLUSION: Successful ORIF. Melchor Bragg MD Chest X-Ray 08/19/16 1844 Signed Impressions: Service Date/Time: Friday, August 19, 2016 19:18 - CONCLUSION: No evidence of acute cardiopulmonary disease. Melchor Cabrera MD Upper Extremity CT 08/19/16 0000 Signed Impressions: Service Date/Time: Friday, August 19, 2016 21:35 - CONCLUSION: Comminuted, impacted and primarily posteriorly angulated neck and greater tuberosity fracture of the right humerus. Melchor Cabrera MD Objective Remarks GENERAL: Middle-aged female in no acute distress. HEENT: PERRLA, EOMI. No scleral icterus or conjunctival pallor. No lid lag or facial droop. CARDIOVASCULAR: Regular rate and rhythm. No obvious murmurs to auscultation. No chest tenderness to palpation. RESPIRATORY: No obvious rhonchi or wheezing. Clear to auscultation. Breath sounds equal bilaterally. GASTROINTESTINAL: Abdomen soft, non-tender, nondistended. BS normal. MUSCULOSKELETAL: Extremities without clubbing, cyanosis, or edema. No obvious deformities. RUE splint NEUROLOGICAL: Awake, alert and oriented x4. No focal neurologic deficits. Moving both upper and lower extremities spontaneously. Procedures S/P Open reduction internal fixation right proximal humerus by Dr Chang 08/20/16 A/P Problem List: (1) Fall ICD Code: W19.XXXA Status: Acute (2) Shoulder fracture, right ICD Code: S42.91XA Status: Acute (3) Leukocytosis ICD Code: D72.829 Status: Acute (4) COPD (chronic obstructive pulmonary disease) ICD Code: J44.9 Status: Acute (5) Tobacco abuse ICD Code: Z72.0 Status: Acute Assessment and Plan 1. Fall: s/p mechanical slip and fall in kitchen, no LOC or head trauma reported. Denies dizziness, lightheadedness, chest pain or SOB. 2. Right Shoulder Fx: secondary to above. Shoulder X-ray w/ comminuted and displaced greater tuberosity and anatomic neck fracture right humerus, images reviewed by me.Ortho consulted S/P Open reduction internal fixation right proximal humerus by Dr Chang by Dr Chang 08/20/16. IVF, analgesics/antiemetics as needed. Management per surgery H/H stable Pain management OT consult 3. Leukocytosis: WBC 13.8 in admission, trending down, no signs of infection. CXR w/ no acute findings, images reviewed by me. Likely secondary to fall/injury. DVT Prophylaxis: SCD/Teds. CM consult for d/c planning as needed. Discussed with the nurse, patient. DC home. OT as OP Problem Qualifiers (1) Shoulder fracture, right: Qualified Code: S42.91XA - Shoulder fracture, right, closed, initial encounter Nette Estes MD Aug 21, 2016 10:49
--- NOTE | 2016-08-21 11:50 | HHI.DS ---
Discharge Summary Admission Date Aug 19, 2016 at 20:13 Discharge Date: Aug 21, 2016 Admitting Diagnosis Right humerus fracture after fall (1) Fall ICD Code: W19.XXXA Diagnosis: Principal (2) Shoulder fracture, right ICD Code: S42.91XA Diagnosis: Principal (3) Leukocytosis ICD Code: D72.829 Diagnosis: Principal (4) COPD (chronic obstructive pulmonary disease) ICD Code: J44.9 Diagnosis: Secondary (5) Tobacco abuse ICD Code: Z72.0 Diagnosis: Secondary Procedures S/P Open reduction internal fixation right proximal humerus by Dr Chang 08/20/16 Brief History - From Admission This is a 61-year-old female with a PMH of COPD and Tobacco Abuse was brought to the ER by EMS secondary to complaints of right shoulder pain after fall. Per patient, she was in her kitchen when she had sudden slip and fall, fell onto her right arm and noted immediate pain. No LOC or head trauma. On arrival , BP 142/89, HR 76, O2 sat 97% on RA, Afebrile. WBC 13.8. Chemistry unremarkable except for GFR 64. Shoulder X-ray with comminuted and displaced greater tuberosity and anatomic neck fracture of the right humerus. CXR with no acute findings. Dr. Jimenez consulted by ER physician, plan is for surgical intervention in a.m. CBC/BMP: 08/21/16 0630 08/21/16 0630 Significant Findings Laboratory Tests Test 08/19/16 08/20/16 08/21/16 19:00 04:46 06:30 White Blood Count 13.8 TH/MM3 13.0 TH/MM3 12.9 TH/MM3 (4.0-11.0) (4.0-11.0) (4.0-11.0) Neutrophils (%) (Auto) 74.4 % 70.4 % 78.3 % (16.0-70.0) (16.0-70.0) (16.0-70.0) Neutrophils # (Auto) 10.3 TH/MM3 9.1 TH/MM3 10.1 TH/MM3 (1.8-7.7) (1.8-7.7) (1.8-7.7) Activated Partial 22.9 SEC Thromboplast Time (24.3-30.1) Estimat Glomerular Filtration 64 ML/MIN (>89) Rate Random Glucose 111 MG/DL 107 MG/DL 121 MG/DL (74-106) (74-106) (74-106) Aspartate Amino Transf 9 U/L (15-37) 7 U/L (15-37) (AST/SGOT) Red Blood Count 3.94 MIL/MM3 3.40 MIL/MM3 (4.00-5.30) (4.00-5.30) Hemoglobin 11.4 GM/DL 10.2 GM/DL (11.6-15.3) (11.6-15.3) Hematocrit 34.7 % 29.7 % (35.0-46.0) (35.0-46.0) Chloride Level 109 MEQ/L (98-107) Imaging Last Impressions Shoulder X-Ray 08/20/16 0000 Signed Impressions: Service Date/Time: Saturday, August 20, 2016 11:05 - CONCLUSION: Successful ORIF. Melchor Bragg MD Chest X-Ray 08/19/16 1844 Signed Impressions: Service Date/Time: Friday, August 19, 2016 19:18 - CONCLUSION: No evidence of acute cardiopulmonary disease. Melchor Cabrera MD Upper Extremity CT 08/19/16 0000 Signed Impressions: Service Date/Time: Friday, August 19, 2016 21:35 - CONCLUSION: Comminuted, impacted and primarily posteriorly angulated neck and greater tuberosity fracture of the right humerus. Melchor Cabrera MD PE at Discharge GENERAL: Middle-aged female in no acute distress. HEENT: PERRLA, EOMI. No scleral icterus or conjunctival pallor. No lid lag or facial droop. CARDIOVASCULAR: Regular rate and rhythm. No obvious murmurs to auscultation. No chest tenderness to palpation. RESPIRATORY: No obvious rhonchi or wheezing. Clear to auscultation. Breath sounds equal bilaterally. GASTROINTESTINAL: Abdomen soft, non-tender, nondistended. BS normal. MUSCULOSKELETAL: Extremities without clubbing, cyanosis, or edema. No obvious deformities. RUE splint NEUROLOGICAL: Awake, alert and oriented x4. No focal neurologic deficits. Moving both upper and lower extremities spontaneously. Hospital Course 1. Fall: s/p mechanical slip and fall in kitchen, no LOC or head trauma reported. Denies dizziness, lightheadedness, chest pain or SOB. 2. Right Shoulder Fx: secondary to above. Shoulder X-ray w/ comminuted and displaced greater tuberosity and anatomic neck fracture right humerus, images reviewed by me.Ortho consulted S/P Open reduction internal fixation right proximal humerus by Dr Chang by Dr Chang 08/20/16. IVF, analgesics/antiemetics as needed. Management per surgery H/H stable Pain management OT consult 3. Leukocytosis: WBC 13.8 in admission, trending down, no signs of infection. CXR w/ no acute findings, images reviewed by me. Likely secondary to fall/injury. DVT Prophylaxis: SCD/Teds. CM consult for d/c planning as needed. Discussed with the nurse, patient. Improved, to follow up as OP with PCP and consultants. Pt Condition on Discharge: Stable Discharge Disposition: Discharge Home Discharge Time: <= 30 minutes Discharge Instructions DIET: Follow Instructions for: Diabetic Diet Activities you can perform: Regular-No Restrictions Follow up Referrals: Orthopedics - 09/03/16 @ [facility] with Alvaro Chang MD PCP Follow-up - 3-5 Days New Medications: Calcium Carbonate-Vitamin D (Calcium 600+D 200) 600-200 Mg-Unit Tab 1 TAB PO BID Nutritional Supplement Days 30 Ref 0 TAB Cholecalciferol (Vitamin D3) 2,000 Unit Cap 2000 UNITS PO DAILY Nutritional Supplement #56 Ref 0 CAP Ergocalciferol (Ergocalciferol) 50,000 Unit Cap 95249 UNITS PO Q7D Nutritional Supplement #56 CAP Hydrocodone-Acetaminophen ([place]) 7.5-325 mg Tab 1 TAB PO Q4H PRN PAIN #60 Ref 0 TAB Continued Medications: Albuterol Sulfate (Proventil Mdi) 17 Gm Aero 2 PUFF INH Q3-4HPRN #1 Ref 0 Albuterol Sulfate (Proventil Ud 0.083% (2.5 Mg/3 Ml)) 2.5 Mg/3 Ml Inha 2.5 MG INH QIDPRN #20 Ref 2 Albuterol Sulfate (Ventolin Hfa) 18 Gm Aero 2 PUFF INH Q4 * SHAKE WELL BEFORE USE * #1 Ref 6 Albuterol Sulfate (Proventil Ud 0.083% (2.5 Mg/3 Ml)) 2.5 Mg/3 Ml Inha 2.5 MG INH Q4 Days 30 Doxycycline Hyclate (Doxycycline Hyclate) 100 Mg Tab 100 MG OR BID #20 Fluticasone/Salmeterol 500 mcg/50 mcg (Advair Diskus 500/50) 500 Mcg/50 Mcg Inhp 14 INHALATION INH DAILY #1 Ipratropium-Albuterol (Resp: Albuterol 2.5 Mg/Ipratropium 0.5 Mg) 1 Amp Nebu 1 AMP NEB QID #25 AMP Spacer/Device For Mdi (Aerochamber) Device 0 INH DIRECTED #1 Nette Estes MD Aug 21, 2016 11:50
--- NOTE | 2016-08-21 13:45 | PD.ORT.PN ---
Subjective Subjective Remarks Sitting bedside with no complaints. Taking only minimal pain medications. Is anxious to go home today Objective Vitals Vital Signs Date Time Temp Pulse Resp B/P Pulse Ox O2 Delivery O2 Flow Rate FiO2 08/21/16 08:05 Room Air 08/21/16 08:00 96.1 100 18 110/50 92 08/21/16 04:00 97.9 70 18 112/50 94 08/21/16 00:00 97.5 76 20 115/59 95 08/20/16 20:36 98.5 72 17 117/63 98 08/20/16 16:00 96.1 65 18 94/64 95 08/20/16 14:00 97.7 70 14 123/79 94 Nasal Cannula 2 08/20/16 13:45 75 13 122/60 95 Nasal Cannula 2 I/O 08/20/16 08/20/16 08/20/16 08/21/16 08/21/16 08/21/16 07:00 15:00 23:00 07:00 15:00 23:00 Intake Total 1039 ml 1640 ml 480 ml 480 ml Output Total 100 ml Balance 1039 ml 1540 ml 480 ml 480 ml Intake Oral 240 ml 240 ml 480 ml 480 ml IV Total 799 ml 500 ml Other 900 ml Output Estimated Blood Loss 100 ml # Voids 1 2 3 2 # Bowel Movements 0 0 0 0 Result Diagram: 08/21/1630 08/21/16 0630 Imaging Last 24 hours Impressions Shoulder X-Ray 08/19/161843 Signed Impressions: Service Date/Time: Friday, August 19, 2016 19:13 - CONCLUSION: Comminuted and displaced greater tuberosity and anatomic neck fracture of the right humerus. Melchor Cabrera MD Chest X-Ray 08/19/161843 Signed Impressions: Service Date/Time: Friday, August 19, 2016 19:18 - CONCLUSION: No evidence of acute cardiopulmonary disease. Melchor Cabrera MD Objective Remarks RUE: + sling. NVI. bruising in shoulder. Incisions clean dry and intact Assessment & Plan Assessment and Plan 1) Right Proximal Humerus Fx Nonweightbearing right upper extremity, in sling and swath at all times except for doing pendulum swings Dressing changes today Discharge to home today with patient education and dressing changes Follow-up with Dr. Franco or PA in 2 weeks HUANG CALLAWAY PA-C Aug 21, 2016 13:45
== END 2016-08-21 16:04 | disposition home or self-care (01) | DRG 494 ==
LOC: NEDAMB 18:13 → NEDA 20:13 → N06B 22:27
PROVIDERS: ADMIT Hospitalist; ATTEND Hospitalist
PROC: 0PSF04Z Reposition Right Humeral Shaft with Internal Fixation Device, Open Approach (ICD-10-PCS; principal; 2016-08-20 10:43)
DX: S42.251A Displaced fracture of greater tuberosity of right humerus, initial encounter for closed fracture (principal); J44.9 Chronic obstructive pulmonary disease, unspecified; S42.241A 4-part fracture of surgical neck of right humerus, initial encounter for closed fracture; W01.0XXA Fall on same level from slipping, tripping and stumbling without subsequent striking against object, initial encounter; Y92.000 Kitchen of unspecified non-institutional (private) residence as the place of occurrence of the external cause; F17.210 Nicotine dependence, cigarettes, uncomplicated; D72.829 Elevated white blood cell count, unspecified
CPT/HCPCS: 71010; 73030; 73200; 76000; 80048; 80053; 85025; 85610; 85730; 96374; 96375; C1713; J0131; J0690; J1580; J2250; J2270; J2370; J2405; J2550; J2710; J3010; J3370; J7030

== ENCOUNTER 2016-08-23 13:13 | Emergency (ER) | payer SELFPAY ==
[~2016-08-23] VITALS: Ht 157.5 cm; Wt 80.0 kg
[~2016-08-23 13:13] MED LIST changes: +CALCTAB19 PO; +ERGO1CAP30 PO; +HYDR-3288 PO; +VITA2000 PO
[2016-08-23 13:14] VITALS: BP 132/60; PULSE 86; RESP 17; TEMP 98.2; O2SAT 95
[2016-08-23] MEDS ORDERED: CEPH-460 PO (14:11)
[2016-08-23] MEDS ORDERED: BACT800T5 PO (14:11)
--- NOTE | 2016-08-23 14:11 | PD ---
HPI Chief Complaint: Skin Problem Time Seen by Provider: 14:09 Travel History International Travel<30 days: No Contact w/Intl Traveler<30days: No Traveled to known affect area: No History of Present Illness HPI 61-year-old female presents to the emergency Department with complaint of swollen, red left great toe that she noticed on Monday. She injured her right shoulder on Monday and had surgery on Monday. She does not recall injuring her toe, but was so focused on her shoulder that she may have injured her toe. She denies fever, chills, nausea, vomiting. Reports numbness and tingling to her toes but that is normal. She has had paresthesias to both feet for 5 years. Has tried warm salt water soaks for the past 2 days with no relief of symptoms. Allergies to Percocet. Does not have an established primary care provider. History of COPD. No other modifying factors or associated signs and symptoms. PFSH Past Medical History Asthma: Yes Autoimmune Disease: No Blood Disorders: No Cancer: No Cardiovascular Problems: No Chemotherapy: No COPD: Yes Diabetes: No Endocrine: No Genitourinary: No Immune Disorder: No Musculoskeletal: Yes Neurologic: No Psychiatric: No Reproductive: No Respiratory: Yes Immunizations Current: Yes Radiation Therapy: No Thyroid Disease: No ?: Not Menopausal: Yes Past Surgical History Abdominal Surgery: No Cardiac Surgery: No Ear Surgery: No Endocrine Surgery: No Eye Surgery: No Genitourinary Surgery: No Gynecologic Surgery: No Neurologic Surgery: No Oral Surgery: Yes (TONSILS) Thoracic Surgery: No Tonsillectomy: Yes Other Surgery: Yes Social History Alcohol Use: Yes (2-3 BEERS A DAY) Tobacco Use: Yes (1/2 PPD) Substance Use: No Allergies-Medications (Allergen,Severity, Reaction): Coded Allergies: Percocet (Verified Allergy, Severe, headache, 08/19/16) Uncoded Allergies: [facility] (Allergy, Unknown, 04/21/09) Reported Meds & Prescriptions Reported Meds & Active Scripts Active Ibuprofen 600 Mg Tab 600 Mg PO Q6H PRN Bactrim DS (Sulfamethoxazole-Trimethoprim) 800-160 Mg Tab 1 Tab PO BID 10 Days Calcium 600+D 200 (Calcium Carbonate-Vitamin D) 600-200 Mg-Unit Tab 1 Tab PO BID 30 Days Vitamin D3 (Cholecalciferol) 2,000 Unit Cap 2,000 Units PO DAILY Ergocalciferol 50,000 Unit Cap 50,000 Units PO Q7D [place] (Hydrocodone-Acetaminophen) 7.5-325 mg Tab 1 Tab PO Q4H PRN Advair Diskus 500/50 (Salmeterol Xinafoate/Fluticasone) 500 Mcg/50 Mcg Inhp 14 Inhalation INH DAILY Proventil Ud 0.083% (2.5 Mg/3 Ml) (Albuterol Sulfate) 2.5 Mg/3 Ml Inha 2.5 Mg INH Q4 30 Days Aerochamber (Device) Device 0 INH DIRECTED Ventolin Hfa (Albuterol Sulfate) 18 Gm Aero 2 Puff INH Q4 * SHAKE WELL BEFORE USE * Resp: Albuterol 2.5 Mg/Ipratropium 0.5 Mg (Albuterol/Ipratropium) 1 Amp Nebu 1 Amp NEB QID Proventil Ud 0.083% (2.5 Mg/3 Ml) (Albuterol Sulfate) 2.5 Mg/3 Ml Inha 2.5 Mg INH QIDPRN Reported Proventil Mdi (Albuterol Sulfate) 17 Gm Aero 2 Puff INH Q3-4HPRN Review of Systems Except as stated in HPI: all other systems reviewed are Neg Physical Exam Narrative GENERAL: Well-nourished, well-developed female patient, in no acute distress; afebrile, nontoxic-appearing SKIN: Warm and dry. Left distal aspect of the great toe is edematous and erythematous; the toenail lifts off the nail bed, but is intact at the base. Patient denies sensation to light touch; positive sensation to deep pressure; findings consistent for patient. Left lower extremity is supple and nontender with 2+ pedal pulse and sensory intact. HEAD: Atraumatic. Normocephalic. EYES: Pupils equal and round. No scleral icterus. No injection or drainage. ENT: Mucosa pink and moist. Airway patent. NECK: Trachea midline. CARDIOVASCULAR: Regular rate. RESPIRATORY: No accessory muscle use. GASTROINTESTINAL: Obese. MUSCULOSKELETAL: Right upper extremity and arm sling splint. No obvious deformities. No clubbing. No cyanosis. No edema. NEUROLOGICAL: Awake and alert. Oriented 3. No obvious cranial nerve deficits. Motor grossly within normal limits. Normal speech. PSYCHIATRIC: Appropriate mood and affect; insight and judgment normal. Data Data Last Documented VS Vital Signs Date Time Temp Pulse Resp B/P Pulse Ox O2 Delivery O2 Flow Rate FiO2 08/23/16 13:14 98.2 86 17 132/60 95 Orders Toe (Min 2vws) (08/23/16 ) Ibuprofen (Motrin) (08/23/16 14:45) Shoe Post Op (08/23/16 ) Shoe Cast (08/23/16 ) MDM Medical Decision Making Medical Screen Exam Complete: Yes Emergency Medical Condition: Yes Medical Record Reviewed: Yes Differential Diagnosis Toe fracture, paronychia, fungal infection, toe fracture Narrative Course 61-year-old female with possible left toe injury or infection. Left toe is edematous and erythematous. The toenail is partially intact and appears infected. The patient did have an injury on Monday and broke her right humerus. She cannot recall if she injured her toe. Ibuprofen ordered. Left great toe x-ray ordered. 1558: Left great toe x-ray concludes Fractured distal phalanx of the left great toe extending into the interphalangeal joint. Patient has fractured right humerus and is in an arm splint. Patient has cane for support. Postop shoe ordered for support. The toe also looks infected and so I will treat her with Bactrim and Keflex for cellulitis. Instructed patient to follow up with podiatry. Patient verbalizes understanding and agreement with treatment plan. Patient is medically cleared and stable for discharge. Discussed reasons to return to the emergency department. Instructed patient to follow up with primary care provider. Patient agrees with treatment plan. The patients vital signs are stable and the patient is stable for outpatient follow-up and treatment. Patient discharged home, stable and in no acute distress. Diagnosis Primary Impression: Fracture of left great toe Qualified Code: S92.425A - Closed nondisplaced fracture of distal phalanx of left great toe, initial encounter Additional Impression: Cellulitis of great toe, left Referrals: [employer] Primary Care Physician Patient Instructions: Cellulitis (ED), General Instructions, Toe Fracture (ED) Additional Instructions: Complete full course of antibiotics Warm soaks to the affected toe Keep area clean and dry Ibuprofen or Tylenol as directed and as needed for pain and inflammation Use cane for support Follow-up with primary care provider Follow-up with podiatry Return to emergency department immediately with worsening of symptoms Med/Other Pt SpecificInfo: Prescription(s) given Scripts Ibuprofen 600 Mg [id number] Mg PO Q6H PRN (Pain/Inflammation) #20 TAB Ref 0 Prov:Radha Pineda 08/23/16 Sulfamethoxazole-Trimethoprim (Bactrim DS)800-160 Mg Tab1 Tab PO BID 10 Days Ref 0 Prov:Radha Pineda 08/23/16 Disposition: 01 DISCHARGE HOME Condition: Stable Radha Pineda Aug 23, 2016 14:11
[2016-08-23] MEDS ORDERED: IBUPROFEN 600 MG TAB PO ONE (14:45)
--- NOTE | 2016-08-23 15:43 | RADRPT ---
EXAM DATE/TIME: 08/23/2016 15:20 [facility] COMPARISON: No previous studies available for comparison. INDICATIONS : Fell 4 days ago, swelling in left great toe MEDICAL HISTORY : None. SURGICAL HISTORY : None. ENCOUNTER: Initial ACUITY: 4 - 6 days PAIN SCORE: 0/10 LOCATION: Left great toe FINDINGS: Examination of the first digit of the left foot demonstrates a fracture through the distal phalanx ex tending into the interphalangeal joint. Soft tissue swelling is noted. Great toes otherwise intact. CONCLUSION: Fractured distal phalanx of the left great toe extending into the interphalangeal joint. Memo Rehman MD on August 23, 2016 at 15:40 Board Certified Radiologist. This report was verified electronically.
[2016-08-23] MEDS ORDERED: IBUP-232 PO (16:13)
== END 2016-08-23 16:29 | disposition home or self-care (01) ==
LOC: NEPB 13:13
DX: S92.422A Displaced fracture of distal phalanx of left great toe, initial encounter for closed fracture (principal); L03.032 Cellulitis of left toe; F17.210 Nicotine dependence, cigarettes, uncomplicated; X58.XXXA Exposure to other specified factors, initial encounter
CPT/HCPCS: 73660; 99283; L3260

== ENCOUNTER 2017-10-14 22:34 | Emergency (ER) | payer SELFPAY ==
[~2017-10-14] VITALS: Ht 160 cm; Wt 74.0 kg
[~2017-10-14 22:34] MED LIST changes: +BACT800T5 PO; -DOXY100T OR; -ERGO1CAP30 PO; +IBUP-232 PO; +VITA500012 PO
[2017-10-14 22:44] VITALS: BP 197/102; PULSE 109; RESP 20; TEMP 97.8; O2SAT 96
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
--- NOTE | 2017-10-14 23:55 | RADRPT ---
EXAM DATE/TIME: 10/14/2017 23:13 [facility] COMPARISON: No previous studies available for comparison. INDICATIONS : Right leg swelling. MEDICAL HISTORY : Chronic obstructive pulmonary disease. Asthma. Claustrophobia. Blood transfusions. SURGICAL HISTORY : Tonsillectomy. Hip surgery. ENCOUNTER: Initial ACUITY: 1 day PAIN SCORE: 5/10 LOCATION: Right leg. TECHNIQUE: Venous ultrasound of the leg was performed from the inguinal ligament to the proximal calf. Real-luz e, color Doppler and spectral tracing, compression and augmentation techniques were used. FINDINGS: There is normal compressibility of the deep venous system from the inguinal region to the proximal ca lf. No echogenic clot is seen in the lumen of the common femoral, femoral, popliteal, and posterior tibial veins. There is a normal response of the venous system to proximal and distal augmentation an d respiration. CONCLUSION: Normal examination. Melchor Garcia MD on October 14, 2017 at 23:53 Board Certified Radiologist. This report was verified electronically.
[2017-10-15] VITALS: BP 133/67; PULSE 94; RESP 18; O2SAT 99
[2017-10-15] MEDS ORDERED: IBUP-232 PO (00:49)
--- NOTE | 2017-10-15 00:52 | RADRPT ---
EXAM DATE/TIME: 10/15/2017 00:15 [facility] COMPARISON: No previous studies available for comparison. INDICATIONS : Right tibia/fibula pain with swelling. No known injury. MEDICAL HISTORY : Chronic obstructive pulmonary disease. Asthma. Claustrophobia. Blood transfusions, Previous right tib ia/fibula fracture SURGICAL HISTORY : Tonsillectomy. Hip surgery, Right tibia/fibula surgery ENCOUNTER: Initial ACUITY: 1 day PAIN SCORE: 7/10 LOCATION: Right tibia/fibula FINDINGS: There is posttraumatic deformity of the proximal right tibia and fibula with some ossification of the interosseous ligament. These changes are quite remote. There is mild arthritic change in the knee. N o evidence of acute bony process. Mild soft tissue swelling of the [place] distally. CONCLUSION: No acute bony findings. Melchor Garcia MD on October 15, 2017 at 0:36 Board Certified Radiologist. This report was verified electronically.
== END 2017-10-15 01:15 | disposition home or self-care (01) ==
LOC: NEPE 22:34
DX: M79.2 Neuralgia and neuritis, unspecified (principal); J44.9 Chronic obstructive pulmonary disease, unspecified; F17.200 Nicotine dependence, unspecified, uncomplicated
CPT/HCPCS: 73590; 93971